=== PATIENT | female | born 1970 | race African-American/Black ===

== ENCOUNTER 2018-01-10 13:54 | Emergency (ER) | payer OTHER ==
[~2018-01-10] VITALS: Ht 160 cm; Wt 70.3 kg
--- NOTE | ~2018-01-10 | EKG ---
[place] [address] [facility] [place] [address] ELECTROCARDIOGRAM REPORT Name: MENDOZA MONTESINOS [facility] [id number] Admission: 01/10/18 Attend Phys: Discharge: 01/10/18 Date of : 66 Report #: [id number] THIS REPORT FOR: //name// [facility] ED Test Date: 2018-01-10 Test Time: 14:23:54 Pat Name: MENDOZA MONTESINOS Department: Room: Gender: F Surgical Assistant: RITA : 1970 Requested By: Westley Pretty Order Number: [id number] MD: Jewel Mackay Measurements Intervals [place] Rate: 77 P: 75 HI: 171 QRS: 29 QRSD: 96 T: 53 QT: 390 QTc: 442 Interpretive Statements Sinus rhythm Premature ventricular complexes RSR' in V1 or V2, right VCD No previous ECG available for comparison Electronically Signed On 01-11-2018 7:35:09 [employer] by Jewel Mackay [email or web address] <ELECTRONICALLY SIGNED> By: Jewel Mackay MD, [facility] 01/11/18 0735 1423 1423 Jewel Mackay MD, FACC /EPI
[2018-01-10] MEDS ORDERED: LOSARTAN-HCTZ1 EACH PO (14:38)
[2018-01-10 15:40] LABS: ABSOLUTE NEUTROPHILS 2.8 thou/uL (1.4-8.2); BASOPHILS 0.6 % (0.0-2.0); EOSINOPHILS 1.3 % (0.0-3.0); HEMATOCRIT 39.1 % (37.0-47.0); HEMOGLOBIN 13.5 gm/dL (12.0-15.0); LYMPHOCYTES 40.6 % (24.0-44.0); MCHC 34.4 g/dL (28.0-37.0); MCV 87.1 fL (80.0-100.0); MONOCYTES 8.6 % (1.0-8.0); PLATELET COUNT 250 thou/uL (150-400); POLYS 48.9 % (36.0-66.0); RBC 4.49 mil/uL (4.20-5.00); RDW 12.1 % (10.5-14.5); WBC 5.8 thou/uL (4.0-11.0)
[2018-01-10 15:48] LABS: AMP/METHAMP Negative (Negative); BARBITURATES Negative (Negative); BENZODIAZEPINES Negative (Negative); COCAINE Negative (Negative); METHADONE Negative (Negative); OPIATES Negative (Negative); PCP Negative (Negative)
[2018-01-10 15:50] LABS: ANION GAP 8 mmol/L (7-16); BUN 12 mg/dL (7-18); CALCIUM 9.2 mg/dL (8.5-10.1); CHLORIDE 101 mmol/L (98-107); CO2 32 mmol/L (21-32); CREATININE 0.8 mg/dL (0.6-1.0); GLUCOSE 113 mg/dL (74-106); POTASSIUM 3.7 mmol/L (3.5-5.1); SODIUM 141 mmol/L (136-145)
[2018-01-10 15:58] LABS: TROPONIN-I <0.06 ng/mL (<0.06)
[2018-01-10 16:51] VITALS: BP 111/67
== END 2018-01-10 17:02 | disposition home or self-care (01) ==
LOC: ER 13:54
PROVIDERS: Emergency Medicine
DX: R00.2 Palpitations (principal); R42 Dizziness and giddiness; R06.02 Shortness of breath; R05 Cough; I10 Essential (primary) hypertension

== ENCOUNTER → 2019-01-18 | Outpatient (CLI) | payer BC ==
[~2019-01-18] MED LIST: LOSARTAN-HCTZ1 EACH PO
== END ==
LOC: RAD 09:02
DX: Z12.31 Encounter for screening mammogram for malignant neoplasm of breast (principal)

== ENCOUNTER → 2019-10-29 | Outpatient (CLI) | payer BC | LOC: ULTRA 13:55 → RAD 13:55 | PROVIDERS: ATTEND Family Medicine | DX: N63.23 Unspecified lump in the left breast, lower outer quadrant (principal) ==

== ENCOUNTER → 2019-11-02 | Outpatient (CLI) | payer BC ==
--- NOTE | 2019-11-07 12:06 | PATH ---
[facility] [place] [address] PATHOLOGY RPT PROCEDURE Name: MANSI [place]AY Room #: [facility].#: [id number] Admission: 11/02/19 Date of : 66 Discharge: Report #: [id number] Path Case #: [id number] [facility] Accession Number: [id number] . 01 Material submitted: . breast - LEFT BREAST MASS. Modifiers: left . 01 Clinical history: . Left breast mass, 4:00, 2 cm, US . 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 (SEE COMMENT) . (VALERIE:holland; 11/06/2019) . . . Surgical Pathology Cancer Case Summary . INVASIVE CARCINOMA OF THE BREAST: Biopsy . Procedure ___ Other: Ultrasound-guided biopsy . Specimen Laterality ___ Left . Tumor Site ___ Distance from nipple: 2 cm ___ Clock position: 4 o'clock . Tumor Size ___ Greatest dimension of largest invasive focus >1 mm: At least 12 mm . Histologic Type ___ Invasive carcinoma of no special type (ductal) . Histologic Grade (Vinay Histologic Score) . Glandular (Acinar)/Tubular Differentiation ___ Score 3 (<10% of tumor area forming glandular/tubular structures) . Nuclear Pleomorphism ___ Score 3 (vesicular nuclei, often with prominent nucleoli, exhibiting marked variation in size and shape, occasionally with very large and bizarre forms) [facility] [address] [place] [address] PATHOLOGY RPT PROCEDURE Name: JAGUARMANSI Room #: REG [facility] Eduard#: [id number] Admission: 11/02/19 Date of : 66 Discharge: Report #: [id number] Path Case #: [id number] . Mitotic Rate ___ Score 3 . Overall Grade ___ Grade 3 (scores of 8 or 9) . Ductal Carcinoma In Situ (DCIS) ___ Not identified . Lymphovascular Invasion ___ Cannot be determined: See comment . Microcalcifications ___ Present in invasive carcinoma . Ancillary Studies . Biomarker Studies ___ Pending . (VALERIE:mmvioletta; 11/06/2019) QLM 11/06/2019 1109 Local . 02 Comment: At least 95% of the submitted tissues show invasive neoplasm. Several foci indeterminate for lymphovascular invasion are noted. Breast tumor profile studies are pending on A1 and will be the subject of an addendum report. . Reviewed with Dr. Beckie Joyce, who agrees with the diagnosis. . Mercedes ( Breast Navigator) notified at approximately 1315 on 11/06/2019. (VALERIE:mml:db; 11/06/2019) . 02 Electronically signed: . Emil Barnes MD, Pathologist NPI- [id number] . 01 Gross description: . Received in formalin labeled "[place] left breast 4:00 2 cm" are multiple cylindrical yellow-mao soft tissue cores measuring in aggregate 2.8 x 2.3 x 0.3 cm. The specimen is submitted in cassettes A1-A3. The specimen is removed from the patient at 1510 and placed in formalin at 1512 on 11/02/2019. The specimen is removed from formalin at 1500 on 11/05/2019. ([facility]; 11/03/2019) [facility] 11/03/[address] [address] PATHOLOGY RPT PROCEDURE Name: MANSI BAY Room #: REG [facility]#: [id number] Admission: 11/02/19 Date of : 66 Discharge: Report #: [id number] Path Case #: [id number] . 02 Pathologist provided ICD-10: C50.912 . 02 CPT . 791904 Specimen Comment: A courtesy copy of this report has been sent to [phone], [phone] Specimen Comment: [phone] Specimen Comment: Report sent to / Performed at: [address], [place], [place] [id number] MD Werner Becerra MD Phone: [phone] Performed at: [address] [facility] [address], [place], [place] [id number] MD Emil Barnes MD Phone: [phone]
== END | disposition home or self-care (01) ==
LOC: ULTRA 14:17
PROVIDERS: ATTEND Radiology Diagnostic Radiology
DX: C50.912 Malignant neoplasm of unspecified site of left female breast (principal); R92.1 Mammographic calcification found on diagnostic imaging of breast; I10 Essential (primary) hypertension; Z79.899 Other long term (current) drug therapy; Z98.890 Other specified postprocedural states